=== PATIENT | male | born 1995 | race Caucasian/White ===

== ENCOUNTER 2016-11-23 22:57 | Emergency (ER) | payer OTHER ==
[~2016-11-23] VITALS: Ht 177.8 cm; Wt 124.7 kg
[~2016-11-23 22:57] MED LIST: NTRS PO
[2016-11-23 23:10] VITALS: TEMP 36.9; Ht 177.8 cm; Wt 124.7 kg
[2016-11-23] MEDS ORDERED: OXYCODONE IR HOME PACK PO STA (23:59)
[2016-11-23] MEDS ORDERED: OXYCODONE HCL IR 5 MG TAB (IMMEDIATE RELEASE) PO STA (23:59)
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
[2016-11-24 01:04] VITALS: BP 160/83; PULSE 80; O2SAT 97
== END 2016-11-24 01:06 | disposition short-term general hospital (02) ==
LOC: C.EDB 22:58 → C.EDA 11-24 01:06
DX: T23.001A Burn of unspecified degree of right hand, unspecified site, initial encounter (principal); T23.002A Burn of unspecified degree of left hand, unspecified site, initial encounter; X58.XXXA Exposure to other specified factors, initial encounter; F17.200 Nicotine dependence, unspecified, uncomplicated